=== PATIENT | male | born 1960 | race Caucasian/White ===

== ENCOUNTER 2017-05-01 05:28 | Day surgery (SDC) | payer OTHER ==
[~2017-05-01] VITALS: Ht 193 cm; Wt 111.4 kg
--- NOTE | ~2017-05-01 | OP ---
PATIENT NAME: USAMA VELÁSQUEZ MEDICAL RECORD: [id number] :64 LOCATION:D.OPS ADMISSION DATE: SURGEON: MCKAY MARTINEZ MD DATE OF OPERATION: 05/01/2017 PREOPERATIVE DIAGNOSES: 1. History of Fraire's esophagus in need of surveillance upper endoscopy with biopsies. 2. History of colon polyps in need of a surveillance colonoscopy due to history of colon polyps. POSTOPERATIVE DIAGNOSES: 1. History of Fraire's esophagus in need of surveillance upper endoscopy with biopsies. 2. History of colon polyps in need of a surveillance colonoscopy due to history of colon polyps. 3. Long segment Fraire's. 4. Also, inadequate colonic prep. Essentially, it appeared that he was completely unprepped. There was a lot of solid fecal material throughout the colon. 5. Large hiatal hernia. PROCEDURES: 1. Esophagogastroduodenoscopy with esophageal and antral biopsies. 2. Aborted colonoscopy. SURGEON: Mckay Martinez MD SUPERVISOR FEED MILL: None. BLOOD LOSS: Minimal. ANESTHESIA: IV sedation. DESCRIPTION OF PROCEDURE: The patient was conveyed to the GI laboratory on 05/01/2017. IV sedation was induced by the anesthesia staff. A bite block was inserted. A gastroscope was inserted into the mouth. It was advanced easily into the hypopharynx. The esophagus was easily intubated as were the stomach and duodenum. Upon withdrawal, retroflexed and angulus views were obtained. Antral biopsies were obtained. Distal esophageal biopsies were obtained in the area of Fraire's esophagus. The endoscope was then withdrawn under direct vision. The patient was turned 180 degrees and placed in the Conteh position. A digital rectal examination was performed. A colonoscope was inserted through the anus. It was advanced to the sigmoid colon and then the procedure was abandoned. There was a lot of solid fecal material present throughout the colon and this would have compromised the patient's endoscopic procedure. The colonoscope was then withdrawn under direct vision. We will reschedule the patient for a repeat colonoscopy after a 2-day prep. TRANSINT:[id number] Voice Confirmation ID: [id number] DOCUMENT ID: [id number] OPERATIVE REPORT [id number] USAMA VELÁSQUEZ MCKAY MARTINEZ MD at 0938 CC: BONILLA PAREKH DO [id number] DICTATION DATE: 05/01/17 0822 [place] SUPERVISOR: 05/01/17 1143 [facility] 05/01/[address] [facility] [address] [place] [address]
--- NOTE | ~2017-05-01 | HP ---
PATIENT: USAMA VELÁSQUEZ MEDICAL RECORD: [id number] ACCOUNT: [id number] LOCATION:BLAISE : 64 ADMISSION DATE: 05/01/17 HISTORY AND PHYSICAL EXAMINATION CHIEF COMPLAINT: Here for endoscopy. HISTORY OF PRESENT ILLNESS: The patient is here for upper and lower endoscopy. He has a history of Fraire's esophagus and require surveillance upper endoscopy with biopsies. He has a history of colon polyps as well and requires surveillance colonoscopy. He has had no dysphagia. The patient has a factor V Leiden. HOME MEDICATIONS: Coumadin, Pravachol, Zoloft, Prilosec. ALLERGIES: PENICILLIN WELL ERYTHROMYCIN. PAST MEDICAL AND SURGICAL HISTORY: Factor V Leiden, history of colon polyps, history of Fraire's esophagus, gastroesophageal reflux, hypertension. PHYSICAL EXAMINATION: GENERAL: The patient does not appear acutely ill. He does not appear chronically ill. VITAL SIGNS: Reviewed. EARS: External ears appear normal. EYES: Extraocular movements are intact. NECK: Trachea is midline. CHEST: No intercostal retractions. PULMONARY: Nonlabored, no stridor. ABDOMEN: No peritonitis with movement. IMPRESSION: 1. History of Fraire's esophagus in need of surveillance upper endoscopy with biopsies. 2. History of colon polyps, in need of surveillance colonoscopy. PLAN: EGD with biopsies and colonoscopy. TRANSINT:[id number] Voice Confirmation ID: [id number] DOCUMENT ID: [id number] SHYAM MARTINEZ MD at 0938 CC: BONILLA PAREKH DO [id number] DICTATION DATE: 05/01/17 0754 [employer] ADMINISTRATOR: 05/01/17 0836 [facility] 05/01/17 [id number] [place] [address]
[2017-05-01] MEDS ORDERED: PRAVACHOL40 MG PO (06:28)
[2017-05-01] MEDS ORDERED: ZOLOFT100 MG PO (06:29)
[2017-05-01] MEDS ORDERED: COUMADIN5 MG PO (06:29)
[2017-05-01] MEDS ORDERED: PRILOSEC10 M1 PO (06:30)
[2017-05-01 06:34] LABS: HEMATOCRIT 42.4 % (42.0-54.0); HEMOGLOBIN 13.7 g/dL (13.5-17.5); MCH 26.4 pg (26.0-34.0); MCHC 32.3 g/dL (31.0-37.0); MCV 81.9 fL (80.0-100.0); MEAN PLATELET VOLUME 10.9 fL (7.4-10.4); RBC 5.18 10x6/uL (4.20-6.10); RDW 14.8 % (11.5-14.5); WBC 6.2 10x3/uL (4.8-10.8)
[2017-05-01 06:37] LABS: ANION GAP 16.4 mmol/L (8-16); CALCIUM 8.9 mg/dL (8.5-10.1); CARBON DIOXIDE 23.5 mmol/L (21.0-32.0); CREATININE - SERUM 1.2 mg/dL (0.6-1.3); POTASSIUM - SERUM 3.9 mmol/L (3.5-5.1)
[2017-05-01 06:40] VITALS: BP 127/89; Ht 193 cm; Wt 111.4 kg
[2017-05-01 07:27] LABS: INR 1.71 (0.85-1.17); PROTIME 19.5 SECONDS (11.6-15.0)
== END 2017-05-01 09:39 | disposition home or self-care (01) ==
LOC: D.OPS 05:28
PROVIDERS: Anesthesiology
DX: Z12.11 Encounter for screening for malignant neoplasm of colon (principal); K22.70 Barrett's esophagus without dysplasia; K44.9 Diaphragmatic hernia without obstruction or gangrene; Z86.010 Personal history of colon polyps; K21.9 Gastro-esophageal reflux disease without esophagitis; I10 Essential (primary) hypertension; D68.51 Activated protein C resistance; Z79.01 Long term (current) use of anticoagulants; Z79.899 Other long term (current) drug therapy; Z88.1 Allergy status to other antibiotic agents; Z88.0 Allergy status to penicillin

== ENCOUNTER 2019-08-08 19:53 | Inpatient (IN) | payer OTHER ==
[~2019-08-08] VITALS: Ht 193 cm; Wt 113.6 kg
[~2019-08-08 19:53] MED LIST: COUMADIN5 MG PO; PRAVACHOL40 MG PO; PRILOSEC10 M1 PO; ZOLOFT100 MG PO
[2019-08-08 20:27] LABS: BILIRUBIN NEGATIVE (NEGATIVE); GLUCOSE 250 mg/dL (NEGATIVE); KETONE NEGATIVE (NEGATIVE); NITRITE NEGATIVE (NEGATIVE); UROBILINOGEN NORMAL (NORMAL)
[2019-08-08 20:29] LABS: BASOPHILS 0 % (0-2); EOSINOPHILS 0 % (0-7); HEMATOCRIT 45.6 % (42.0-54.0); HEMOGLOBIN 15.2 g/dL (13.5-17.5); IMMATURE GRANULOCYTES 0.3 % (0-5); MCH 30.3 pg (26.0-34.0); MCHC 33.3 g/dL (31.0-37.0); MEAN PLATELET VOLUME 10.7 fL (7.4-10.4); MONOCYTES 7.2 % (2-11); NEUTROPHILS 86.5 % (40-80); PLATELET COUNT 188 10x3/uL (130-400); RBC 5.01 10x6/uL (4.20-6.10); RDW 13.1 % (11.5-14.5); WBC 15.5 10x3/uL (4.8-10.8)
[2019-08-08 20:39] LABS: CALC OSMOLALITY 277 mosm/kg (275-300); CALCIUM 9.3 mg/dL (8.5-10.1); CARBON DIOXIDE 21.2 mmol/L (21.0-32.0); CHLORIDE - SERUM 102 mmol/L (98-107); CREATININE - SERUM 1.3 mg/dL (0.6-1.3); GLUCOSE 134 mg/dL (74-106); POTASSIUM - SERUM 3.7 mmol/L (3.5-5.1); SODIUM 136 mmol/L (136-145); UREA NITROGEN 23 mg/dL (7-18); eGFR NON AFRICAN AMERICAN 60 mL/min (90-120)
[2019-08-08 20:43] LABS: ALBUMIN 4.1 g/dL (3.4-5.0); ALKALINE PHOSPHATASE 63 U/L (30-120); ALT (SGPT) 40 U/L (10-68); AMYLASE - SERUM 80 U/L (25-115); BILIRUBIN - TOTAL 2.43 mg/dL (0.2-1.3); LIPASE 233 U/L (73-393); PROTEIN - SERUM 7.4 g/dL (6.4-8.2)
[2019-08-08 20:44] LABS: TROPONIN-I < 0.017 ng/mL (0.000-0.060)
--- NOTE | 2019-08-08 21:23 | NUR ---
PT TO RADIOLOGY.
[2019-08-08 22:20] VITALS: BP 149/93
[2019-08-08 22:32] LABS: APTT 30.5 SECONDS (22.8-39.4); INR 1.21 (0.85-1.17); PROTIME 15.2 SECONDS (11.6-15.0)
--- NOTE | 2019-08-08 23:15 | NUR ---
RECEIVED TO ROOM VIA STRECHER FROM ER. ALERT.ORIENTED. COMPLAITNS OF ABD PAIN. IV TO RAC INTACT WITHOUT REDNESS OR EDEMA NOTED. SHOW OPERATIONS SUPERVISOR CONNECTED PER ORDERS. PATIENT INSTRUCTED ON USE. CL IN REACH
[2019-08-08 23:27] VITALS: BP 123/84; BMI 30.5
[2019-08-09 04:00] VITALS: BP 122/76
[2019-08-09 06:35] LABS: BASOPHILS 0.1 % (0-2); EOSINOPHILS 0 % (0-7); HEMATOCRIT 41.7 % (42.0-54.0); IMMATURE GRANULOCYTES 0.3 % (0-5); MCH 30.6 pg (26.0-34.0); MCHC 33.6 g/dL (31.0-37.0); MCV 91.2 fL (80.0-100.0); MEAN PLATELET VOLUME 11.4 fL (7.4-10.4); MONOCYTES 5.2 % (2-11); NEUTROPHILS 91.4 % (40-80); PLATELET COUNT 162 10x3/uL (130-400); RBC 4.57 10x6/uL (4.20-6.10); RDW 13.3 % (11.5-14.5); WBC 15.9 10x3/uL (4.8-10.8)
[2019-08-09 06:48] LABS: CALC OSMOLALITY 282 mosm/kg (275-300); CALCIUM 8.2 mg/dL (8.5-10.1); CARBON DIOXIDE 23.5 mmol/L (21.0-32.0); CHLORIDE - SERUM 105 mmol/L (98-107); GLUCOSE 128 mg/dL (74-106); POTASSIUM - SERUM 3.7 mmol/L (3.5-5.1); SODIUM 139 mmol/L (136-145); UREA NITROGEN 20 mg/dL (7-18); eGFR NON AFRICAN AMERICAN 82 mL/min (90-120)
--- NOTE | 2019-08-09 07:20 | NUR ---
ALERT AND ORIENTED X4. ABDOMEN GAURDED TO RUQ WITH BOWEL SOUNDS HYPOACTIVE. UP ADLIB. IV TO RT. A/C WITH NO S/S OF INFECTION/INFILTRATION. TELEMETRY INTACT. PATINET PREOPED. ENCOURAGED TO USE CALL LIGHT FOR ASSSIT. HRRR AND LUNGS CTA. DENEIS ANY PAIN OR DISCOMFORT AT THIS TIME
--- NOTE | 2019-08-09 07:45 | NUR ---
SURGICAL STAFF HERE AND LEFT FOR SURGERY. PATIENT STABLE AT THIS TIME
[2019-08-09 07:58] VITALS: Ht 193 cm; Wt 113.6 kg
[2019-08-09 09:55] VITALS: BP 113/74
--- NOTE | 2019-08-09 10:00 | NUR ---
PATIENT RETURNED TO ROOM AND STABLE ENCOURAGED INCENTIVE SPIROMOETER WITH TELEMETRY REAPPLIED.
--- NOTE | 2019-08-09 10:30 | NUR ---
INCISIONAL SITES INTACT WITH STERISTIPS. BOWEL SOUNDS ABSCENT AT THIS TIME. DENIES ANY PAIN OR DISCOMFORT.
[2019-08-09 13:58] VITALS: BP 108/73
[2019-08-09 18:13] VITALS: BP 118/75
--- NOTE | 2019-08-09 18:58 | NUR ---
PATIENT VOIDED 500CC AT THIS TIME. ENCOURAGED TO USE CALL LIGHT FOR ASSSIT AND DENIES ANY PAINOR DISCOMFORT.
--- NOTE | 2019-08-09 19:00 | NUR ---
BEDSIDE REPORT RECEIVED AND CARE OF PT ASSUMED. PT LYING IN LOW LEVIN'S POSITION WATCHING TV. IV TO RIGHT AC PATENT WITH NS INFUSING AT 100 ML/HR, WITH MORPHINE IN SCHOOL SUSPENSION AIDE IN USE FOR PAIN. WILL MONITOR FOR NEEDS.
[2019-08-09 20:00] VITALS: BP 121/74
--- NOTE | 2019-08-09 20:05 | NUR ---
TEACHING PERFORMED ON INCENTIVE INSPIROMETER WITH RETURN DEMONSTRATION.
--- NOTE | 2019-08-09 20:56 | NUR ---
HS MEDICATIONS GIVEN. WILL CONTINUE TO MONITOR FOR NEEDS.
[2019-08-10] VITALS: BP 124/70
[2019-08-10 04:00] VITALS: BP 123/72
[2019-08-10 06:06] LABS: BASOPHILS 0.1 % (0-2); EOSINOPHILS 0.1 % (0-7); HEMATOCRIT 38.8 % (42.0-54.0); HEMOGLOBIN 12.8 g/dL (13.5-17.5); IMMATURE GRANULOCYTES 0.2 % (0-5); LYMPHOCYTES 5.4 % (15-50); MCH 30.8 pg (26.0-34.0); MONOCYTES 5.6 % (2-11); NEUTROPHILS 88.6 % (40-80); PLATELET COUNT 157 10x3/uL (130-400); RBC 4.15 10x6/uL (4.20-6.10); RDW 13.4 % (11.5-14.5); WBC 12.7 10x3/uL (4.8-10.8)
[2019-08-10 06:15] LABS: MCV 93.5 fL (80.0-100.0)
[2019-08-10 06:23] LABS: ANION GAP 10.2 mmol/L (8-16); BILIRUBIN - TOTAL 1.61 mg/dL (0.2-1.3); CALCIUM 8.2 mg/dL (8.5-10.1); CARBON DIOXIDE 26.4 mmol/L (21.0-32.0); CREATININE - SERUM 1.1 mg/dL (0.6-1.3); POTASSIUM - SERUM 3.6 mmol/L (3.5-5.1); PROTEIN - SERUM 6.2 g/dL (6.4-8.2)
[2019-08-10 06:27] LABS: ALBUMIN 2.7 g/dL (3.4-5.0)
[2019-08-10] MEDS ORDERED: HYDROCODON-ACE1 EAC7 PO (09:21)
[2019-08-10 09:50] VITALS: BP 119/83
[2019-08-10 13:40] VITALS: BP 127/83
[2019-08-10 16:00] VITALS: BP 128/89
--- NOTE | 2019-08-10 19:00 | NUR ---
BEDSIDE REPORT RECEIVED AND CARE OF PT ASSUMED. PT LYING IN LOW LEVIN'S POSITION WATCHING TV. IV TO RIGHT AC PATENT WITH NS INFUSING AT 50 ML/HR. WILL MONITOR FOR NEEDS.
[2019-08-10 20:00] VITALS: BP 129/82
--- NOTE | 2019-08-10 20:30 | NUR ---
PT AMBULATED AROUND NURSING UNIT X4 LAPS.
--- NOTE | 2019-08-10 20:57 | NUR ---
HS MEDICATIONS GIVEN. WILL CONTINUE TO MONITOR FOR NEEDS.
--- NOTE | 2019-08-11 | NUR ---
PT C/O ABDOMINAL PAIN AND NAUSEA. GAVE PRN ZOFRAN 4 MG IVP AND SCHEDULED TORADOL 30 MG IVP. WILL MONITOR FOR EFFECTIVENESS.
[2019-08-11 00:33] VITALS: BP 132/78
--- NOTE | 2019-08-11 00:35 | NUR ---
PT REPORTS FEELING BETTER...LESS PAIN AND NAUSEA DISAPATED.
[2019-08-11 04:30] VITALS: BP 143/91
[2019-08-11 07:53] VITALS: BP 143/92
[2019-08-11 12:35] VITALS: BP 143/78
[2019-08-11 17:13] VITALS: BP 107/58; BP 140/96
--- NOTE | 2019-08-11 18:55 | NUR ---
PATIENT IN BED WITH IV INTACT. NO COMPLAINTS OR SIGNS OF DISTRESS. STATES NO MORE NAUSEA AT THIS TIME. CALL LIGHT WITHIN REACH.
--- NOTE | 2019-08-11 19:00 | NUR ---
BEDSIDE REPORT RECEIVED AND CARE OF PT ASSUMED. PT LYING IN LOW LEVIN'S POSITION WITH EYES CLOSED AND EASY RESPIRATIONS. IV TO RIGHT AC PATENT WITH NS INFUSING AG 50 ML/HR. ABDOMEN DISTENDED WITH HYPOACTIVE BOWEL SOUNDS IN ALL QUADRANTS. WILL MONITOR FOR NEEDS.
[2019-08-11 20:05] VITALS: BP 150/87
--- NOTE | 2019-08-11 21:17 | NUR ---
HS MEDICATIONS GIVEN. WILL CONTINUE TO MONITOR FOR NEEDS.
--- NOTE | 2019-08-11 21:25 | NUR ---
GAVE APPLE JUICE FOR HS SNACK.
[2019-08-12] VITALS: BP 148/82
--- NOTE | 2019-08-12 00:56 | NUR ---
GAVE SCHEDULED TORADOL 30 MG IVP AND PRN ZOFRAN 4 MG IVP PER REQUEST FOR NAUSEA. WILL CONTINUE TO MONITOR JOSELEY FOR NEEDS.
--- NOTE | 2019-08-12 03:56 | NUR ---
PT VOMITED APPROX 1,000 ML OF BROWNISH EMESIS. GAVE SCHEDULED REGLAN AND PRN ZOFRAN. PT REMAINS WITH DISTENDED ABDOMEN AND HYPOACTIVE BOWEL SOUNDS. WILL CONTINUE TO MONITOR CLOSELY.
[2019-08-12 04:01] VITALS: BP 135/84
[2019-08-12 05:34] LABS: BASOPHILS 0.1 % (0-2); EOSINOPHILS 0.5 % (0-7); HEMATOCRIT 39.6 % (42.0-54.0); HEMOGLOBIN 13.1 g/dL (13.5-17.5); LYMPHOCYTES 6.4 % (15-50); MCHC 33.1 g/dL (31.0-37.0); MEAN PLATELET VOLUME 10.5 fL (7.4-10.4); MONOCYTES 9.9 % (2-11); NEUTROPHILS 82.1 % (40-80); RBC 4.36 10x6/uL (4.20-6.10); RDW 13.1 % (11.5-14.5)
[2019-08-12 05:49] LABS: MCV 90.8 fL (80.0-100.0); PLATELET COUNT 198 10x3/uL (130-400)
[2019-08-12 05:56] LABS: ANION GAP 12.7 mmol/L (8-16); CARBON DIOXIDE 27.8 mmol/L (21.0-32.0); CREATININE - SERUM 1.1 mg/dL (0.6-1.3); POTASSIUM - SERUM 3.5 mmol/L (3.5-5.1)
--- NOTE | 2019-08-12 08:45 | NUR ---
PATIENT IN BED WITH IV INTACT. NO COMPLAINTS OR SIGNS OF DISTRESS. CALL LIGHTW ITHIN REACH.
[2019-08-12 08:48] VITALS: BP 139/91
--- NOTE | 2019-08-12 10:30 | NUR ---
PATIENT UP AMBULATING IN RICHTER SEVERAL LAPS AT THIS TIME.
--- NOTE | 2019-08-12 12:45 | NUR ---
PATIENT IN BED WITH IV INTACT. NO COMPLAINTS OR SIGNS OF DISTRESS. CALL LIGHT WITHIN REACH.
[2019-08-12 12:59] VITALS: BP 143/93
[2019-08-12 16:38] VITALS: BP 148/93
--- NOTE | 2019-08-12 18:45 | NUR ---
PATIENT IN BED WITH IV INTACT. ABD STILL DISTENDED. VOMITTED X 1 TODAY. AMBULATED IN HALLWAY WITH NO PROBLEMS. EXPLAINED TO PATIENT TO SPEAK WITH DR. DUCKWORTH ABOUT RESTARTING PRILOSEC AND LETTING BRING FROM HOME IF ABLE IF PROTONIX IS NOT WORKING. VERBALIZED UNDERSTANDING. ALSO WANTS TO KNOW ABOUT A LAXATIVE OR SOMETHING IF ABLE. STATED HE WILL NOTIFY PHYSICIAN IN AM.
[2019-08-12 20:00] VITALS: BP 142/90
--- NOTE | 2019-08-12 20:30 | NUR ---
PT SITTING UP IN BED WITHOUT DISTRESS, AOX4. DENIES PAIN OR NAUSEA AT THIS TIME. LAP SITES CDI. IV RIGHT AC INFUSING NS @ 50. O2 3L/NC. BOWEL SOUNDS HYPOACTIVE, REPORTS PASSING GAS. ENCOURAGED TO USE INCENTIVE SPIROMETER AND AMBULATE. VERBALIZED UNDERSTANDING. DENIES NEEDS. CL IN REACH, WILL CTM
[2019-08-13] VITALS: BP 145/89
[2019-08-13 04:00] VITALS: BP 122/76
--- NOTE | 2019-08-13 07:37 | NUR ---
resting in bed, no distress noted, iv infusing, eyes closed
[2019-08-13 08:54] VITALS: BP 131/83
[2019-08-13] MEDS ORDERED: LEVAQUIN750 MG PO (09:14)
--- NOTE | 2019-08-13 10:45 | NUR ---
D/C IV AND TELE, TIP INTACT ON IV, TAKEN PER W/C FROM HOSPITAL, KOFI WELL
[2019-08-15 14:09] LABS: AEROBE ID Final report (())
== END 2019-08-13 10:44 | disposition home or self-care (01) | DRG 339 ==
LOC: D.ER 19:53 → D.MS 22:06
PROVIDERS: Family Medicine; ADMIT Surgery; ATTEND Surgery
PROC: 0DTJ4ZZ Resection of Appendix, Percutaneous Endoscopic Approach (ICD-10-PCS; principal; 2019-08-09 08:00)
DX: K35.32 Acute appendicitis with perforation, localized peritonitis, and gangrene, without abscess (principal); K91.30 Postprocedural intestinal obstruction, unspecified as to partial versus complete; K21.9 Gastro-esophageal reflux disease without esophagitis

== ENCOUNTER 2019-08-15 13:51 | Inpatient (IN) | payer OTHER ==
[~2019-08-15] VITALS: Ht 193 cm; Wt 115.2 kg
--- NOTE | ~2019-08-15 | HEMODYNAMI ---
PATIENT:USAMA VELÁSQUEZ MEDICAL RECORD: [id number] : 64 LOCATION: D.2229 ADMISSION DATE: 08/15/19 Generatedon:08/22/201916:06 Patient name: USAMA VELÁSQUEZ Patient #: [id number] SSN: : 1960 Date of study: 08/22/2019 Page: Of Hemodynamic Procedure Report Patient Data Patient Demographics Procedure consent was obtained First Name: USAMA Gender: Male Last Name: DIDIER : 1960 Middle Initial: REEMA Age: 59 year(s) Patient #: [id number] Race: Unknown Additional ID: [id number] Contact details [address]: [address] [place] [address] State: [place] City: [place] Zip code: [address] Admission Admission Data Admission Date: 08/15/2019 Admission Time: 13:51 Room #: D.2229 Procedure Procedure Types Cath Procedure Peripheral Cath Diagnostic Procedure Miscellaneous Procedure Description Procedure Date Procedure Date: 08/22/2019 Procedure Start Time: 15:59 Procedure Staff Name Function Jeff Clayton MD Performing Physician STAN CARTAGENA RT Monitor Rob Kapadia RT Scrub Harper Aviles RN Nurse Procedure Data Cath Procedure Fluoroscopy Diagnostic fluoroscopy Total fluoroscopy Time: 0.5 time: 0.5 min min Diagnostic fluoroscopy Total fluoroscopy dose: 73 dose: 73 mGy mGy Contrast Material Contrast Material Type Amount (ml) Isovue 300 12 Hemodynamics Rest Pre Cath Intra NCS Post Cath Procedure Log Time Note 15:46:33 Rob Kapadia RT (R) (CV) sent for patient. Start room use. 15:46:40 Time tracking: Regular hours (M-F 7:00 - 5:00) 15:46:47 Patient received from Med/Surg to IR Alert and oriented. Tansferred to table in Supine position. 15:46:50 Signed procedure consent form obtained from patient. 15:46:52 Full Disclosure recording started 15:46:55 Use device set IR Diagnostic 15:46:57 Bag Decanter () opened to sterile field. 15:46:57 Sterile Angiographic Pack opened to sterile field. 15:46:58 Tegaderm 4 x 4 (1626W) opened to sterile field. 15:47:04 - 15:47:07 Pre-procedure instructions explained to patient. 15:47:08 Pre-op teaching completed and patient verbalized understanding. 15:47:10 Family unavailable. 15:47:12 Patient NPO since Midnight. 15:54:32 Sharps counted by scrub and verified by R.N. 15:54:32 Alarms reviewed by R. N. 15:54:39 Left Lumbar was prepped with chlora-prep and draped in sterile fashion. 15:58:34 Physician arrived 15:58:35 --------ALL STOP TIME OUT------ 15:58:36 Final Timeout: patient, procedure, and site verified with staff and physician. All members of the team are in agreement. 15:58:39 Lumbar site verified by team. 15:58:47 Sedation plan: Local Anesthetic Medication:Lidocaine 15:59:00 Procedure started. 16:03:55 Procedure ended.(Physican Out) 16:05:28 Fluoroscopy time 00.50 minutes. 16:05:32 Fluoroscopy dose: 73 mGy 16:05:32 Flurop Dose total: 73 16:05:39 Contrast amount:Isovue 300 12ml. 16:05:48 Post-op/insertion site Left Lumbar area dressed using a 4 x 4 and Tegaderm. 16:05:55 Report given to Med/Surg. 16:05:59 Patient transfered to Med/Surg with Bed. Device Usage Item Name Manufacture Quantity Catalog Hospital Part Current Minimal Lot# / Number Charge Number Stock Stock Serial# Code Bag Decanter Microtek 1 [id number] () [employer] Sterile Cardinal [address] [id number] 5 Angiographic Health Pack Tegaderm 4 x 3M 1 [id number] 5 4 (1626W) Signature Audit [place] Stage Time Signature Unsigned Intra-Procedure 08/22/2019 Rob 4:06:31 PM Kang RT (R) (CV) [id number] [place] [address]
[~2019-08-15 13:51] MED LIST changes: +HYDROCODON-ACE1 EAC7 PO; +LEVAQUIN750 MG PO
[2019-08-15 16:55] LABS: APTT 26.8 SECONDS (22.8-39.4); INR 1.08 (0.85-1.17); PROTIME 13.9 SECONDS (11.6-15.0)
[2019-08-15 16:56] VITALS: BP 142/78; BMI 30.9
--- NOTE | 2019-08-15 17:30 | NUR ---
PATIENT IV STARTED IN LEFT HAND X 2 STICKS. TOLERATED WITH SMALL AMOUNT OF PAIN. WILL GET FLUID AND IV ABX STARTED. CALL LIGHT WITHIN REACH.
[2019-08-15 17:41] LABS: CKMB 0.9 U/L (0.0-3.6); CREATINE KINASE 42 UL (21-232); MAGNESIUM - SERUM 2.2 mg/dL (1.8-2.4); TROPONIN-I < 0.017 ng/mL (0.000-0.060)
--- NOTE | 2019-08-15 17:45 | NUR ---
PATIENT TO GET PROCEDURE.
[2019-08-15 18:24] LABS: CALCIUM 8.1 mg/dL (8.5-10.1); CARBON DIOXIDE 23.3 mmol/L (21.0-32.0); CREATININE - SERUM 1.1 mg/dL (0.6-1.3); POTASSIUM - SERUM 3.3 mmol/L (3.5-5.1)
--- NOTE | 2019-08-15 18:42 | NUR ---
PATIENT BACK TO ROOM AT THIS TIME. STATED TO ROQUE DURÁN THAT HE IS ON XARELTO. UNABLE TO DO THE CT ABCESS DRAIN. PATIENT IN BED WITH IV INTACT. CALL LIGHT WITHIN REACH.
[2019-08-15 20:00] VITALS: BP 139/87
[2019-08-15 21:38] LABS: CKMB 0.5 U/L (0.0-3.6); CREATINE KINASE 42 UL (21-232)
[2019-08-15 21:48] LABS: TROPONIN-I < 0.017 ng/mL (0.000-0.060)
[2019-08-16] VITALS: BP 137/79
[2019-08-16 00:20] LABS: BILIRUBIN NEGATIVE (NEGATIVE); GLUCOSE NEGATIVE (NEGATIVE); KETONE SMALL mg/dL (NEGATIVE); NITRITE NEGATIVE (NEGATIVE); SPECIFIC GRAVITY 1.015 (1.005-1.020); UROBILINOGEN NORMAL (NORMAL)
--- NOTE | 2019-08-16 01:05 | NUR ---
ALERT RESTING IN BED DENIES PAIN OR NEEDS AT THIS TIME, SEE SHIFT ASSESSMENT, CALL LIGHT IN REACH
[2019-08-16 04:00] VITALS: BP 139/77
[2019-08-16 05:51] LABS: BASOPHILS 0.1 % (0-2); EOSINOPHILS 0.5 % (0-7); HEMATOCRIT 37.8 % (42.0-54.0); HEMOGLOBIN 12.7 g/dL (13.5-17.5); IMMATURE GRANULOCYTES 1.3 % (0-5); LYMPHOCYTES 5.2 % (15-50); MCHC 33.6 g/dL (31.0-37.0); MCV 89.4 fL (80.0-100.0); MONOCYTES 7.1 % (2-11); NEUTROPHILS 85.8 % (40-80); PLATELET COUNT 231 10x3/uL (130-400); RBC 4.23 10x6/uL (4.20-6.10); RDW 13.8 % (11.5-14.5); WBC 14.1 10x3/uL (4.8-10.8)
[2019-08-16 06:19] LABS: ALBUMIN 2.2 g/dL (3.4-5.0); ALKALINE PHOSPHATASE 72 U/L (30-120); ALT (SGPT) 45 U/L (10-68); BILIRUBIN - TOTAL 1.07 mg/dL (0.2-1.3); CALC OSMOLALITY 270 mosm/kg (275-300); CALCIUM 7.6 mg/dL (8.5-10.1); CARBON DIOXIDE 22.8 mmol/L (21.0-32.0); CHLORIDE - SERUM 102 mmol/L (98-107); CKMB 0.5 U/L (0.0-3.6); CREATINE KINASE 31 UL (21-232); CREATININE - SERUM 0.9 mg/dL (0.6-1.3); GLUCOSE 98 mg/dL (74-106); MAGNESIUM - SERUM 1.9 mg/dL (1.8-2.4); POTASSIUM - SERUM 3.1 mmol/L (3.5-5.1); PROTEIN - SERUM 5.8 g/dL (6.4-8.2); SODIUM 135 mmol/L (136-145); TROPONIN-I < 0.017 ng/mL (0.000-0.060); UREA NITROGEN 15 mg/dL (7-18); eGFR NON AFRICAN AMERICAN > 90 mL/min (90-120)
[2019-08-16 08:32] VITALS: BP 135/78
--- NOTE | 2019-08-16 09:50 | NUR ---
I have reviewed this patient and I concur with the Shift Assessment completed by the Licensed Practical Nurse today this shift.
[2019-08-16 11:47] VITALS: BP 138/76
--- NOTE | 2019-08-16 13:33 | NUR ---
CALL WAS PLACED TO DR. MARTINEZ ABOUT STARTING PT ON LOVENOX OR BACK ON XARELTO. PT HAS LOVENOX ORDERS CURRENTLY BUT REFUSED TO TAKE AT THIS TIME. C/L IN REACH AT BEDSIDE.
[2019-08-16 15:48] VITALS: BP 135/78
[2019-08-16 20:00] VITALS: BP 131/79
--- NOTE | 2019-08-16 22:10 | NUR ---
LYING QUEITLY WITH NO DISTESSS NOTED. IV TO LFA WITHOUT REDNESS OR EDEMA NOTED. STERI STRIPS INTACT TO ABD. LEFT SIDE ABD INCICION RED AROUND AREA . NO COMPLAINTS OF DISCOMFORT NOTED. CL IN REACH
[2019-08-17] VITALS: BP 131/68
[2019-08-17 04:00] VITALS: BP 122/73
--- NOTE | 2019-08-17 04:45 | NUR ---
I have reviewed this patient and I concur with the Shift Assessment completed by the Licensed Practical Nurse today this shift.
[2019-08-17 05:40] LABS: BASOPHILS 0.1 % (0-2); EOSINOPHILS 0.4 % (0-7); HEMATOCRIT 37.8 % (42.0-54.0); HEMOGLOBIN 12.6 g/dL (13.5-17.5); IMMATURE GRANULOCYTES 1.5 % (0-5); LYMPHOCYTES 7.1 % (15-50); MCH 29.9 pg (26.0-34.0); MCHC 33.3 g/dL (31.0-37.0); MCV 89.6 fL (80.0-100.0); MEAN PLATELET VOLUME 10.6 fL (7.4-10.4); MONOCYTES 6.4 % (2-11); NEUTROPHILS 84.5 % (40-80); PLATELET COUNT 254 10x3/uL (130-400); RBC 4.22 10x6/uL (4.20-6.10); RDW 13.9 % (11.5-14.5); WBC 16.1 10x3/uL (4.8-10.8)
[2019-08-17 05:51] LABS: ALBUMIN 2.2 g/dL (3.4-5.0); ALKALINE PHOSPHATASE 80 U/L (30-120); ALT (SGPT) 46 U/L (10-68); BILIRUBIN - TOTAL 1.28 mg/dL (0.2-1.3); CALC OSMOLALITY 268 mosm/kg (275-300); CALCIUM 7.7 mg/dL (8.5-10.1); CHLORIDE - SERUM 100 mmol/L (98-107); CREATININE - SERUM 0.9 mg/dL (0.6-1.3); GLUCOSE 101 mg/dL (74-106); MAGNESIUM - SERUM 1.8 mg/dL (1.8-2.4); PROTEIN - SERUM 5.9 g/dL (6.4-8.2); SODIUM 134 mmol/L (136-145); UREA NITROGEN 14 mg/dL (7-18); eGFR NON AFRICAN AMERICAN > 90 mL/min (90-120)
[2019-08-17 07:38] VITALS: BP 132/78
--- NOTE | 2019-08-17 09:55 | NUR ---
PT ALERT X 4. BREATH SOUNDS CLEAR BILAT. IV TO LEFT HAND, SALINE LOCKED. PT REPORTING NO PAIN AT THIS TIME. BED LOW, CALL LIGHT IN REACH. NO OTHER NEEDS AT THIS TIME.
[2019-08-17 13:03] VITALS: BP 132/75
[2019-08-17 17:32] VITALS: BP 136/80
[2019-08-17 20:00] VITALS: BP 126/74
[2019-08-18] VITALS (12 sets, daily range): BP systolic 110–130; BP diastolic 53–79; Ht 193 cm; Wt 115.2 kg
[2019-08-18 05:49] LABS: BASOPHILS 0.1 % (0-2); EOSINOPHILS 0.4 % (0-7); HEMOGLOBIN 12.1 g/dL (13.5-17.5); IMMATURE GRANULOCYTES 1.2 % (0-5); LYMPHOCYTES 4.8 % (15-50); MCH 29.7 pg (26.0-34.0); MCHC 33.6 g/dL (31.0-37.0); MCV 88.5 fL (80.0-100.0); MEAN PLATELET VOLUME 10.1 fL (7.4-10.4); MONOCYTES 7.2 % (2-11); NEUTROPHILS 86.3 % (40-80); PLATELET COUNT 265 10x3/uL (130-400); RBC 4.07 10x6/uL (4.20-6.10); RDW 13.5 % (11.5-14.5); WBC 15.4 10x3/uL (4.8-10.8)
[2019-08-18 05:51] LABS: ALBUMIN 2.2 g/dL (3.4-5.0); ALKALINE PHOSPHATASE 77 U/L (30-120); ALT (SGPT) 41 U/L (10-68); BILIRUBIN - TOTAL 1.27 mg/dL (0.2-1.3); CALC OSMOLALITY 269 mosm/kg (275-300); CALCIUM 7.8 mg/dL (8.5-10.1); CARBON DIOXIDE 25.4 mmol/L (21.0-32.0); CHLORIDE - SERUM 101 mmol/L (98-107); CREATININE - SERUM 0.9 mg/dL (0.6-1.3); GLUCOSE 110 mg/dL (74-106); MAGNESIUM - SERUM 1.9 mg/dL (1.8-2.4); POTASSIUM - SERUM 3.3 mmol/L (3.5-5.1); PROTEIN - SERUM 5.9 g/dL (6.4-8.2); SODIUM 134 mmol/L (136-145); UREA NITROGEN 14 mg/dL (7-18); eGFR NON AFRICAN AMERICAN > 90 mL/min (90-120)
--- NOTE | 2019-08-18 06:07 | NUR ---
I have reviewed this patient and I concur with the Shift Assessment completed by the Licensed Practical Nurse today this shift.
--- NOTE | 2019-08-18 08:30 | NUR ---
ASSESSMENT PER FLOW SHEET. PATIENT DENIES PAIN AT PRESENT. LAP SITES TO ABDOMEN X2. LAP SITES LLQ RED,SLIGHTLY WARM TO TOUCH,WITHOUT DRAINAGE.SCD'S PLACED ON PATIENT.IS TO BEDSIDE WITH INSTRUCTION. NPO FOR PROCEDURE TODAY.CALL LIGHT IN REACH
--- NOTE | 2019-08-18 12:30 | NUR ---
TO IR VIA BED
--- NOTE | 2019-08-18 12:31 | NUR ---
CALL TO CARIDAD POLLARD [phone] TO INFORM HER PATIENT HAS WENT TO IR FOR PROCEDURE
--- NOTE | 2019-08-18 14:26 | NUR ---
NICHOLAS CALLED [phone] FOR PATIENT PER HIS REQUEST. THERE WILL BE AT LEAST A 30 MINUTE WAIT
--- NOTE | 2019-08-18 14:29 | NUR ---
BACK IN ROOM AND MEDS GIVEN PER MAR. DRAIN LEFT LOWER HIP INTACT. MILKY DRAINAGE NOTED IN CANISTER. PATIENT DENIES PAIN.
--- NOTE | 2019-08-18 14:30 | NUR ---
CALL TO CARIDAD POLLARD [phone]. PATIENT UPDATE GIVEN TO HER.
--- NOTE | 2019-08-18 21:38 | NUR ---
193)rec'd chge of shift walking rounds in bed eyes closed respirations deep and even.family called. states patient called her very hot temp taken 102.2.2100) tylenol 650mg given per order.angry states this is the 3rd time i've been in here and this should not be happening again. this high fever. and never came and talked to my girlfriend about the procedure that was done on me today.i want to talk to someone in administration now.explained administration has gone for the nite can connect you to [facility].answering service states dr choudhury is carton and can supply supervisor.no response call rec'd stating dr choudhury is not carton and can supply supervisor. answering service [phone]) call rec'd from dr alesia leivaing 102.2 temp to see if require any additional orders.
[2019-08-19] VITALS: BP 118/80
[2019-08-19 05:50] VITALS: BP 114/79
[2019-08-19 05:50] LABS: BASOPHILS 0.1 % (0-2); EOSINOPHILS 0.4 % (0-7); HEMATOCRIT 36.1 % (42.0-54.0); IMMATURE GRANULOCYTES 0.8 % (0-5); LYMPHOCYTES 5.2 % (15-50); MCH 29.8 pg (26.0-34.0); MCHC 33.2 g/dL (31.0-37.0); MCV 89.6 fL (80.0-100.0); MEAN PLATELET VOLUME 10.2 fL (7.4-10.4); MONOCYTES 6.6 % (2-11); NEUTROPHILS 86.9 % (40-80); PLATELET COUNT 302 10x3/uL (130-400); RBC 4.03 10x6/uL (4.20-6.10); RDW 13.6 % (11.5-14.5); WBC 16.6 10x3/uL (4.8-10.8)
[2019-08-19 06:21] LABS: ALKALINE PHOSPHATASE 78 U/L (30-120); ALT (SGPT) 33 U/L (10-68); BILIRUBIN - TOTAL 1.25 mg/dL (0.2-1.3); CALC OSMOLALITY 271 mosm/kg (275-300); CALCIUM 7.8 mg/dL (8.5-10.1); CARBON DIOXIDE 22.6 mmol/L (21.0-32.0); CHLORIDE - SERUM 101 mmol/L (98-107); GLUCOSE 101 mg/dL (74-106); MAGNESIUM - SERUM 2.3 mg/dL (1.8-2.4); POTASSIUM - SERUM 3.5 mmol/L (3.5-5.1); PROTEIN - SERUM 5.9 g/dL (6.4-8.2); SODIUM 135 mmol/L (136-145); UREA NITROGEN 19 mg/dL (7-18); eGFR NON AFRICAN AMERICAN 82 mL/min (90-120)
[2019-08-19 09:16] VITALS: BP 111/80
[2019-08-19 13:20] VITALS: BP 121/78
[2019-08-19 18:56] VITALS: BP 138/77
--- NOTE | 2019-08-19 19:30 | NUR ---
PT SITTING UP IN BED WITHOUT DISTRESS, AOX4. LAP SITES X3 TO ABD, BILI DRAIN IN PLACE TO LEFT SIDE. IV LEFT HAND INFUSING NS @ KVO. DENIES PAIN. PROVIDED ICE WATER. NO OTHER NEEDS. CL IN REACH, WILL CTM
[2019-08-19 20:00] VITALS: BP 121/8
--- NOTE | 2019-08-19 22:00 | NUR ---
FLUSHED BILI DRAIN WITH 10ML FLUSH ORDERED
[2019-08-20 05:57] LABS: BASOPHILS 0.1 % (0-2); EOSINOPHILS 0.8 % (0-7); HEMATOCRIT 35.9 % (42.0-54.0); HEMOGLOBIN 11.8 g/dL (13.5-17.5); IMMATURE GRANULOCYTES 0.9 % (0-5); LYMPHOCYTES 7.3 % (15-50); MCH 29.5 pg (26.0-34.0); MCHC 32.9 g/dL (31.0-37.0); MCV 89.8 fL (80.0-100.0); MEAN PLATELET VOLUME 10.4 fL (7.4-10.4); MONOCYTES 7.4 % (2-11); NEUTROPHILS 83.5 % (40-80); PLATELET COUNT 360 10x3/uL (130-400); RDW 13.5 % (11.5-14.5)
[2019-08-20 06:32] LABS: ALKALINE PHOSPHATASE 79 U/L (30-120); ALT (SGPT) 34 U/L (10-68); BILIRUBIN - TOTAL 0.94 mg/dL (0.2-1.3); CALC OSMOLALITY 272 mosm/kg (275-300); CALCIUM 7.6 mg/dL (8.5-10.1); CARBON DIOXIDE 23.9 mmol/L (21.0-32.0); CHLORIDE - SERUM 103 mmol/L (98-107); GLUCOSE 98 mg/dL (74-106); MAGNESIUM - SERUM 2.3 mg/dL (1.8-2.4); POTASSIUM - SERUM 3.5 mmol/L (3.5-5.1); PROTEIN - SERUM 5.9 g/dL (6.4-8.2); SODIUM 135 mmol/L (136-145); UREA NITROGEN 20 mg/dL (7-18); eGFR NON AFRICAN AMERICAN 82 mL/min (90-120)
--- NOTE | 2019-08-20 07:43 | NUR ---
PT LYING IN BED, HAS GLASSES ON ASLEEP, EASILY AWAKENED, BILI DRAIN LT ABD SIDE, SITE IS CDI, PT IV IN LEFT HAND CDI AND PATENT, SCDS ON AND I/S AT BEDISDE. K+ IS 3.5 WILL ADD PROTOCOL TO MORNING MEDS, NO NEEDS OR CONCERNS VOICED AT THIS TIME, ASSUME PT CARE
[2019-08-20 08:00] VITALS: BP 121/75
[2019-08-20 12:00] VITALS: BP 113/75
--- NOTE | 2019-08-20 14:46 | NUR ---
INCISIONS X 3 (ABDOMEN) WITH BILI DRAIN LL ABD. NO CHRONIC WOUNDS.
[2019-08-20 16:00] VITALS: BP 121/78
--- NOTE | 2019-08-20 19:30 | NUR ---
PT SITTING UP IN BED WITHOUT DISTRESS, AOX4. DENIES PAIN. LAP SITES CDI. BILI DRAIN TO LL ABD. IV RIGHT HAND SL, FLUSHES EAILY. DENIES NEEDS AT THIS TIME. CL IN REACH, WILL CTM
[2019-08-20 20:00] VITALS: BP 124/86
[2019-08-21 04:00] VITALS: BP 112/63
--- NOTE | 2019-08-21 05:12 | NUR ---
EMPTIED BILI DRAIN. 25ML TOTAL AFTER 10ML FLUSH X2 THIS SHIFT
[2019-08-21 06:17] LABS: BASOPHILS 0.2 % (0-2); EOSINOPHILS 2.3 % (0-7); HEMATOCRIT 35.4 % (42.0-54.0); HEMOGLOBIN 11.7 g/dL (13.5-17.5); IMMATURE GRANULOCYTES 1.3 % (0-5); LYMPHOCYTES 8.8 % (15-50); MCH 29.7 pg (26.0-34.0); MCHC 33.1 g/dL (31.0-37.0); MCV 89.8 fL (80.0-100.0); MEAN PLATELET VOLUME 10.3 fL (7.4-10.4); MONOCYTES 9.6 % (2-11); NEUTROPHILS 77.8 % (40-80); PLATELET COUNT 407 10x3/uL (130-400); RBC 3.94 10x6/uL (4.20-6.10); RDW 13.5 % (11.5-14.5); WBC 10.8 10x3/uL (4.8-10.8)
[2019-08-21 06:23] LABS: CALC OSMOLALITY 270 mosm/kg (275-300); CALCIUM 7.9 mg/dL (8.5-10.1); CARBON DIOXIDE 25.1 mmol/L (21.0-32.0); CHLORIDE - SERUM 101 mmol/L (98-107); GLUCOSE 100 mg/dL (74-106); POTASSIUM - SERUM 3.7 mmol/L (3.5-5.1); SODIUM 135 mmol/L (136-145); UREA NITROGEN 16 mg/dL (7-18); eGFR NON AFRICAN AMERICAN 82 mL/min (90-120)
--- NOTE | 2019-08-21 07:35 | NUR ---
PT LYING IN BED ASLEEP, NO S/SX OF DISTRESS, RT HAND IV CDI, N/S AT KVO, BILIDRAIN INTACT NO OUTPUT YET THIS MORNING, DRESSING AREA IS CDI, BED IN LOWEST POSITION, CL IN REACH CONTINUE WITH PLAN OF CARE
[2019-08-21 08:00] VITALS: BP 108/76
[2019-08-21 12:00] VITALS: BP 120/79
--- NOTE | 2019-08-21 15:55 | NUR ---
I have reviewed this patient and I concur with the Shift Assessment completed by the Licensed Practical Nurse today this shift.
[2019-08-21 16:00] VITALS: BP 123/81
[2019-08-21 20:00] VITALS: BP 107/68
--- NOTE | 2019-08-21 20:00 | NUR ---
PATIENT RESTING IN BED WATCHING TV. NO S/S OF ACUTE DISTRESS. NO C/O AT THIS TIME. PATIENT HAS LEFT HAND NORMAL SALINE @ KVO. IV IS PATENT WITHOUT REDNESS, SWELLING, OR TENDERNESS. PATIENT HAS A LEFT SIDE BILI DRAIN AND 3 LAP SITES, DRESSINGS C/D/I. PATIENT IS UP ADLIB. CALL LIGHT WITHIN REACH. KATHRIN CONTINUE TO MONITOR.
[2019-08-22] VITALS (9 sets, daily range): BP systolic 102–112; BP diastolic 60–80
--- NOTE | 2019-08-22 00:14 | NUR ---
I have reviewed this patient and I concur with the Shift Assessment completed by the Licensed Practical Nurse today this shift.
[2019-08-22 05:15] LABS: BASOPHILS 0.4 % (0-2); EOSINOPHILS 4.3 % (0-7); HEMATOCRIT 35.2 % (42.0-54.0); HEMOGLOBIN 11.5 g/dL (13.5-17.5); IMMATURE GRANULOCYTES 1.4 % (0-5); LYMPHOCYTES 13.6 % (15-50); MCH 29.6 pg (26.0-34.0); MCHC 32.7 g/dL (31.0-37.0); MCV 90.5 fL (80.0-100.0); MEAN PLATELET VOLUME 10.2 fL (7.4-10.4); MONOCYTES 9.9 % (2-11); NEUTROPHILS 70.4 % (40-80); PLATELET COUNT 444 10x3/uL (130-400); RBC 3.89 10x6/uL (4.20-6.10); RDW 13.6 % (11.5-14.5); WBC 8.4 10x3/uL (4.8-10.8)
[2019-08-22 05:42] LABS: CALC OSMOLALITY 273 mosm/kg (275-300); CALCIUM 7.9 mg/dL (8.5-10.1); CARBON DIOXIDE 25.6 mmol/L (21.0-32.0); CHLORIDE - SERUM 103 mmol/L (98-107); GLUCOSE 97 mg/dL (74-106); POTASSIUM - SERUM 3.8 mmol/L (3.5-5.1); SODIUM 136 mmol/L (136-145); UREA NITROGEN 17 mg/dL (7-18); eGFR NON AFRICAN AMERICAN 82 mL/min (90-120)
--- NOTE | 2019-08-22 07:34 | NUR ---
RESTING IN BED WITH EYES CLOSED. RESPIRATIONS EVEN AND UNLABORED. NO S/S OF ACUTE DISTRESS NOTED. BILI DRAIN TO LEFT ABDOMEN. 3 LAP SITES TO ABDOMEN, C/D/I. IV TO LEFT HAND, NS INFUSING @ KVO. SITE PATENT WITHOUT REDNESS OR SWELLING. SCDS PRESENT. CALL LIGHT IN REACH. WILL CONTINUE TO MONITOR.
--- NOTE | 2019-08-22 11:51 | NUR ---
I have reviewed this patient and I concur with the Shift Assessment completed by the Licensed Practical Nurse today this shift.
--- NOTE | 2019-08-22 18:53 | NUR ---
PATIENT DISCHARGING HOME WITH FAMILY. DISCONTINUED IV, CATHETHER TIP INTACT. WENT OVER DISCHARGE INSTRUCTIONS WITH PATIENT, VERBALIZED UNDERSTANDING. DENIES ANYTHING FURTHER.
--- NOTE | 2019-08-22 19:10 | NUR ---
PATIENT ESCORTED DOWN TO HOSPITAL STAFF TO ER VIA WHEELCHAIR BY ME. PATIENT PCIKED HIM UP IN PERSONAL CAR. NO FURTHER QUESTIONS OR COMPLAINTS.
[2019-08-24 15:08] LABS: AEROBE ID Final report (())
== END 2019-08-22 19:10 | disposition home or self-care (01) | DRG 371 ==
LOC: D.MS 13:51
PROVIDERS: General Practice; Internal Medicine Nephrology; Radiology Diagnostic Radiology; ADMIT Family Medicine; ATTEND Family Medicine
PROC: 0W9J3ZZ Drainage of Pelvic Cavity, Percutaneous Approach (ICD-10-PCS; principal; 2019-08-18 12:30)
PROC: 3E0M3KZ Introduction of Other Diagnostic Substance into Peritoneal Cavity, Percutaneous Approach (ICD-10-PCS; 2019-08-22)
DX: K65.1 Peritoneal abscess (principal); E43 Unspecified severe protein-calorie malnutrition; D68.51 Activated protein C resistance; E87.1 Hypo-osmolality and hyponatremia; E78.5 Hyperlipidemia, unspecified; D64.9 Anemia, unspecified; Z68.30 Body mass index [BMI] 30.0-30.9, adult; E87.6 Hypokalemia

== ENCOUNTER → 2019-12-30 07:26 | Day surgery (SDC) | payer OTHER ==
[~2019-12-30] VITALS: Ht 193 cm; Wt 111.4 kg
[~2019-12-30 07:26] MED LIST changes: +XARELTO10 MG PO
[2019-12-30 07:48] LABS: HEMATOCRIT 43.6 % (42.0-54.0); HEMOGLOBIN 14.7 g/dL (13.5-17.5); MCH 29.1 pg (26.0-34.0); MCHC 33.7 g/dL (31.0-37.0); MCV 86.3 fL (80.0-100.0); MEAN PLATELET VOLUME 10.9 fL (7.4-10.4); RBC 5.05 10x6/uL (4.20-6.10); RDW 14.2 % (11.5-14.5); WBC 5.3 10x3/uL (4.8-10.8)
[2019-12-30 08:39] VITALS: BP 112/75; Ht 193 cm; Wt 111.4 kg
--- NOTE | 2019-12-30 12:35 | NUR ---
1210 TAKEN OUT VIA W/C AND ASSISTED TO CAR WITH FAMILY. ADVISED TO CALL OR COME BACK IF ANY PROBLEMS.
--- NOTE | 2019-12-30 15:06 | HP ---
PATIENT: USAMA VELÁSQUEZ MEDICAL RECORD: [id number] ACCOUNT: [id number] LOCATION:BLAISE : 64 ADMISSION DATE: 12/30/19 PCP: BONILLA PAREKH DO HISTORY AND PHYSICAL EXAMINATION HISTORY OF PRESENT ILLNESS: The patient is here for upper and lower endoscopy. He has a history of long segment Fraire's esophagus. He is here for surveillance of the Fraire's. Additionally, he has a history of colon polyps. When I attempted colonoscopy back in 2018, it was an inadequate prep and it was essentially an unprepped colon. SOCIAL HISTORY: Former smoker. PAST MEDICAL AND SURGICAL HISTORY: Factor V clotting disorder, appendectomy, history of arm fracture, Fraire's esophagus, history of colon polyps. ALLERGIES: ERYTHROMYCIN AND PENICILLIN. HOME MEDICATIONS: Please see the nursing list. He has been off Xarelto for 4 days. PHYSICAL EXAMINATION: GENERAL: The patient does not appear acutely ill. He does not appear chronically ill. VITAL SIGNS: Reviewed. EARS: External ears appear normal. EYES: Extraocular movements are intact. NECK: Trachea is midline. CHEST: No intercostal retractions. PULMONARY: Nonlabored, no stridor. IMPRESSION: 1. Fraire's esophagus. 2. History of colon polyps. PLAN: Surveillance upper and lower endoscopies. TRANSINT:[id number] Voice Confirmation ID: [id number] DOCUMENT ID: [id number] SHYAM MARTINEZ MD at 1506 CC: [id number] DICTATION DATE: 12/30/19 1017 CERTIFIED SOC[employer] IN [employer] C[employer]: 12/30/19 1226 [id number] [place] [address]
--- NOTE | 2019-12-31 12:32 | OP ---
PATIENT NAME: USAMA VELÁSQUEZ MEDICAL RECORD: [id number] :64 LOCATION:D.OPS ADMISSION DATE: SURGEON: MCKAY MARTINEZ MD DATE OF OPERATION: 12/30/2019 PREOPERATIVE DIAGNOSES: 1. History of Fraire esophagus in need of surveillance. 2. History of colon polyps in need of surveillance. 3. Previous inadequate colonic prep. POSTOPERATIVE DIAGNOSES: 1. History of Fraire esophagus in need of surveillance. 2. History of colon polyps in need of surveillance. 3. Previous inadequate colonic prep. 4. Adequate colonic prep this time. 5. Six colorectal polyps. 6. One gastric polyp. 7. Paraesophageal hernia. PROCEDURES: 1. Esophagogastroduodenoscopy with esophageal and antral biopsies. 2. Snare gastric polypectomy times 1. 3. Total colonoscopy to cecum. 4. Hot biopsy forceps polypectomies times 5. 5. Snare colonic polypectomy times 1. SURGEON: Mckay Martinez MD LEGAL EXECUTIVE: None. BLOOD LOSS: Minimal. ANESTHESIA: IV sedation. COMPLICATIONS: None. The risks, possible complications and alternatives to the procedure were explained to the patient. He elects to proceed. The discussion specifically included, but was not limited to, bleeding requiring emergency reoperation, infection, intestinal injury. OPERATIVE COURSE: The patient was conveyed to endoscopy suite electively on 12/30/2019. IV sedation was induced by the anesthesia staff. A bite block was inserted. A gastroscope was inserted into the mouth. It was advanced easily into the hypopharynx. The esophagus was easily intubated as were the stomach and duodenum. Upon withdrawal, retroflexed and angulus views were obtained. Antral biopsies were obtained. Multiple random distal esophageal biopsies were obtained in the area of Fraire esophagus. The patient has a long segment Fraire esophagus. I noted no nodularity to the Fraire's. I then advanced into the stomach. The patient had several gastric polyps, most of these were small. One was pedunculated and it was the largest of the gastric polyps. I advanced an endoscopic snare. I performed a snare gastric polypectomy. This was utilizing the coagulation setting and the cut setting. I then suctioned up the polyp and it was caught in the polyp trap. OPERATIVE REPORT [id number] USAMA VELÁSQUEZ The endoscope was then withdrawn under direct vision. The patient was turned 180 degrees and placed in the Conteh position. A digital rectal examination was performed. A colonoscope was inserted through the anus. It was easily advanced to the cecum. The prep was adequate. I slowly withdrew the endoscope. I irrigated and aspirated extensively. The pullback was greater than a 20-minute pullback. There were a number of sessile polyps. These ranged from 4 mm in size to 1.5 cm. These were removed in their entireties utilizing the hot biopsy forceps polypectomy technique. There was one semi-pedunculated polyp, which was 2.0 cm polyp and was semi-pedunculated. This was removed in its entirety utilizing a snare polypectomy technique. I then utilized the coagulation setting and then the cut setting. A retroflexed view was obtained in the rectum. I then unretroflexed the scope and removed it under direct vision. The patient was then conveyed back to his room. I will see him in the office in 2-3 weeks. I will plan for his next upper endoscopy to take place in 2 years and his next colonoscopy to take place in 3 years. TRANSINT:[id number] Voice Confirmation ID: [id number] DOCUMENT ID: [id number] MCKAY MARTINEZ MD at 1232 CC: BONILLA PAREKH DO [id number] DICTATION DATE: 12/30/19 1132 PROJECTION CAMERA OPERATOR: 12/30/193 [facility] 12/30/19 [id number] [place] [address]
== END | disposition home or self-care (01) ==
LOC: D.OPS 07:26
PROVIDERS: Anesthesiology; ATTEND Surgery
DX: Z87.19 Personal history of other diseases of the digestive system (principal); Z86.010 Personal history of colon polyps; Z91.19 Patient's noncompliance with other medical treatment and regimen; K63.5 Polyp of colon; K62.1 Rectal polyp; K22.8 Other specified diseases of esophagus; K31.7 Polyp of stomach and duodenum; K44.9 Diaphragmatic hernia without obstruction or gangrene